=== PATIENT | male | born 1970 | race Caucasian/White ===

== ENCOUNTER 2018-05-14 01:35 | Emergency (ER) | payer OTHER ==
[~2018-05-14] VITALS: Ht 177.8 cm; Wt 98.4 kg
[~2018-05-14 01:35] MED LIST: ADDERALL 20 MG20 M1; HYDROCODONE-AP1 EAC6 PO; NORCO 5-325 TA1 EACH PO; NORFLEX100 MG PO; TRAMADOL 50 MG50 MG PO; VALIUM5 MG PO
[2018-05-14] MEDS ORDERED: BACTRIM DS TAB1 EACH (01:51)
[2018-05-14] MEDS ORDERED: MOBIC15 MG (01:51)
[2018-05-14] MEDS ORDERED: LOPRESSOR (01:52)
[2018-05-14 04:07] VITALS: BP 128/91
--- NOTE | 2018-05-14 17:09 | EKG ---
[place] [address] ELECTROCARDIOGRAM REPORT Name: LUCIO MORELOS Room: [facility]#: [id number] Admission: 05/14/18 Attend Phys: Discharge: 05/14/18 Date of : 72 Report #: [id number] THIS REPORT FOR: //name// [facility] ED Test Date: 2018-05-14 Test Time: 01:40:49 Pat Name: LUCIO MORELOS Department: Room: Gender: M [employer]: NILS : 1970 Requested By: Naz Schaefer Order Number: [id number] Mary MD: Darrin Mejias Measurements Intervals [place] Rate: 52 P: 46 DC: 162 QRS: 32 QRSD: 110 T: 22 QT: 418 QTc: 389 Interpretive Statements Sinus rhythm No previous ECG available for comparison Electronically Signed On 05-14-2018 17:09:14 CDT by Darrin Mejias [email or web address] <ELECTRONICALLY SIGNED> By: Darrin Mejias MD, [facility] 05/14/18 1709 0140 0140 Darrin Mejias MD, FACC /EPI
== END 2018-05-14 04:07 | disposition home or self-care (01) ==
LOC: M.ERS 01:35
DX: S06.0X1A Concussion with loss of consciousness of 30 minutes or less, initial encounter (principal); I10 Essential (primary) hypertension; G89.29 Other chronic pain; M54.9 Dorsalgia, unspecified; V89.2XXA Person injured in unspecified motor-vehicle accident, traffic, initial encounter; Y93.89 Activity, other specified; Y92.89 Other specified places as the place of occurrence of the external cause; Y99.8 Other external cause status